=== PATIENT | female | born 1960 | race Caucasian/White ===

== ENCOUNTER → 2017-12-11 | Outpatient (CLI) | payer MEDICARE ==
[~2017-12-11] MED LIST: CLONIDINE0.1 PO; CYMBALTA30 MG PO; DYAZIDE 37.5-21 EACH; EFFEXOR 5050 MG/1 T1 PO; GLUCOTROL5 MG PO; LABETALOL HCL100 MG PO; LANTUS100 UNIT/M SUBQ; NEURONTIN 300300 M1 PO; NORCO 5-325 TA1 EACH PO; REQUIP 0.25 M0.25 MG PO; SYNTHROID150 MCG PO; TRAMADOL 50 MG50 MG PO; TYLENOL325 MG PO
--- NOTE | 2017-12-16 10:23 | PAINCON ---
[address] [address] PAIN MANAGEMENT CONSULTATION Name: ANNIA SPARKS Room: [facility].#: [id number] Admission: 12/11/17 Attend Phys: Iraj Dowd MD Discharge: Date of : 60 Report #: [id number] THIS REPORT FOR: //name// CC: Dr. Kavitha Barger DATE OF SERVICE: 12/11/2017 CHIEF COMPLAINT: "Pain in my neck, back, legs, which has gotten worse since September." FOLLOWUP HISTORY: The patient states that over the last 4 months, things have gotten worse. She has noted increased pain and discomfort with activities of daily living. States that she is retired because of disability. She does like to fish. She notes that she has restless legs and her legs are numb in the bottom. She has history of diabetes. States that her blood sugars are sometimes out of range. She has a history of smoking cigarettes for some time. She has been using hdnx-cqv-unxyrhu medications without long-term benefit. She describes her discomfort as continuous, constant, steady, shooting, burning, cramping and rates it as a 10/10. Pain is worse when she is walking. She is not sure of anything that makes it significantly better. She has some concerns that she may need to see her eye doctor because of some changes in her vision. States that she has some pain in her arms as a result of carpal tunnel syndrome. She has not had surgery for this. Notes some soreness in the back of her neck. She feels that this might be associated with some lesions/cysts that were removed from her neck in the past. Feels that there has been some slight source, may be some ulceration in her mouth. She does wear dentures. I am not sure whether or not the dentures are seated/fitting properly. ALLERGIES: LISINOPRIL. CURRENT MEDICATIONS: Levothyroxine 150 mcg, triamcinolone/hydrochlorothiazide 37.5/25 mg, losartan 100 mg, labetalol 100 mg 2 tablets daily, gabapentin 300 mg at bedtime, Tresiba -- Lantus insulin 100 units. PAST MEDICAL HISTORY: 1. Diabetes 15 years. 2. Hyperthyroid -- treated, now hypothyroid. 3. Stomach problems. 4. Emotional problems. PAST MEDICATIONS USED: Clonidine 0.1 mg b.i.d., duloxetine 30 mg, tramadol 50 mg 1 q.4-6 hours, Effexor, and glyburide 5 mg. PAST SURGICAL HISTORY: Hysterectomy, , fibroid tumors, [place] [address] PAIN MANAGEMENT CONSULTATION Name: BRIDGERANNIA K Room: [facility] Nisha#: [id number] Admission: 12/11/17 Attend Phys: Iraj Dowd MD Discharge: Date of : 60 Report #: [id number] the neck and appendectomy. ____ 2002, fibroid tumor removed in 2000, section was 1989, appendectomy was 2009, cyst removed from the neck 1997. SOCIAL HISTORY: The patient is disabled. States that she was disabled since 03/2017. 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 She is originally from [place], [place] States that she likes fishing daily. Has a 3-year-old grandson, who she would like to be more involved with. REVIEW OF SYSTEMS: Weight changes, fatigue, weakness, headaches, wears glasses, hearing loss/ringing in the ears, drainage, chronic sinus problems, mouth sores or sore glands in the neck, loss of appetite, bowel changes, nausea, vomiting, painful bowel movements, abdominal pain, rash and itching, varicose veins, frequent recurring headaches, lightheadedness, numbness and tingling sensation in the feet and hands, nervousness, depression, insomnia, slow to heal, easy bruising. LABORATORY DATA: The patient states that she had x-rays taken by her primary. There were no significant problems found. PAIN CLINIC ASSESSMENT: 1. The patient states that she is not being treated for rheumatoid arthritis or osteoarthritis. 2. Height 5 feet. Weight 164 pounds, BMI 32. 3. VITAL SIGNS: Blood pressure 163/99, heart rate 73, respiratory rate 16, room air saturation 98%. 4. Pain intensity 10/10. 5. Fall Risk: The patient states that she slipped and fell down [place] the [place] when she was going down. It felt like her knee caught. Fell a couple of days ago in the shower. States that she slipped on a slippery area in the tub. 6. ____ thinner. The patient is not on a blood thinning medication. 7. Hypertension. The patient is being treated for hypertension. 8. Opioid therapy. The patient is not on a regular opioid medication. 9. Risk assessment tool. 10. Functional assessment tool. The patient rates her pain impact score as a 61/70 indicating significant impact of her pain on activities of daily living. 11. Recreational drug use. The patient denies use of recreational drugs. 12. Tobacco: The patient states that she has smoked for 15 years, smokes one-half pack of cigarettes per day. Her work material which she brought to the pain clinic smells deeply of tobacco. 13. Alcohol: The patient admits to may be monthly use of alcohol, but no long-term use of alcoholic beverages. PHYSICAL EXAMINATION: GENERAL: The patient is a well-developed white female. Looks significantly [facility] [address] [place] [address] PAIN MANAGEMENT CONSULTATION Name: ANNIA SPARKS Efra Room: [facility]#: [id number] Admission: 12/11/17 Attend Phys: Iraj Dowd MD Discharge: Date of : 60 Report #: [id number] older than her stated age. Affect is appropriate. She is alert and oriented x 3. HEENT: Normocephalic. Skin shows significant signs of aging and that which is sometimes consistent with use of tobacco. Eyes, nonicteric. Hearing within normal limits. The patient has dentures. She removed her upper dentures stating that she sometimes has lesions up there. None are seen at this juncture. NECK: Without adenopathy. Good range of motion left and right lateral bending, lumbar extension and flexion without significant problems. No bruits. HEART: Regular rate. Normal S1, S2. LUNGS: Clear to auscultation, somewhat distant without rhonchi or rales. ABDOMEN: Nontender without adenopathy. MUSCULOSKELETAL: Without significant scoliosis, kyphosis or lordosis. Upper extremity muscle strength is judged to be 5/5 for the major muscle groups in the upper extremity with symmetry. Deep tendon reflexes are +2 for the biceps as well as +2 for the triceps and brachioradialis. Lower extremity, the patient has some tenderness to palpation midpoint in the lumbar area near the left posterior superior iliac spine area. Muscle strength in the lower extremities is judged to be 5/5 for the major muscle groups. Deep tendon reflexes are +2 at the knees, +2 at the ankles with brisk ankle reflexes. Raymundo's sign is negative. Anterolateral and posterior spring tests are negative. The patient complains of some numbness and tingling in the dorsal/bottom of her feet. Some muscle soreness in the anterior portion of her calf. IMPRESSION: 1. Musculoskeletal pain involving the upper extremities, lower extremities, no neurologic component noted. 2. Possible neurogenic pain secondary to her diabetes with involvement of her feet. 3. Restless leg syndrome. 4. History of depression. 5. Chronic pain. 6. Poor physical status. RECOMMENDATIONS: We discussed treatment options with the patient. At this juncture, it appears that she has global pain. Again, she has no discrete lumbar radicular pain or neurological dermatomal findings. I think at this juncture, she would be well served by increasing her physical conditioning. She should see the physical therapist and they could help her with appropriate exercises. We have given her Requip. Hopefully, this will be helpful in decreasing the amount of restless legs symptomatology. We would recommend that she increase her gabapentin to 300 mg t.i.d. She is on 100 at bedtime. She will increase to 300 t.i.d. as she is able to tolerate it. We discussed the need for the patient being mindful of her glucose. We explained the possible physiological complications of diabetes, which include eye, heart, renal, peripheral vascular causes. We also stressed cessation of tobacco use. [facility] [place] [address] [place] [address] PAIN MANAGEMENT CONSULTATION Name: ANNIA SPARKS Room: [facility]#: [id number] Admission: 12/11/17 Attend Phys: Iraj Dowd MD Discharge: Date of : 60 Report #: [id number] patient has been given a script for physical therapy. She was given a script for the Requip as well as a script for gabapentin. Hopefully, she continues to improve. At this juncture, there is no evidence for epidural steroid injections because the patient is not showing any signs of cervical or lumbar radiculopathy. We would like to thank you for letting us participate in her care. We hope she continues to improve. <ELECTRONICALLY SIGNED> By: Iraj Dowd MD 12/16/17 1023 [id number]. Andrae Dowd MD /nt
== END ==
LOC: M.PC 01:34
DX: M79.621 Pain in right upper arm (principal); M79.622 Pain in left upper arm; M79.661 Pain in right lower leg; M79.673 Pain in unspecified foot; G25.81 Restless legs syndrome; G89.29 Other chronic pain; F32.9 Major depressive disorder, single episode, unspecified

== ENCOUNTER → 2018-07-22 | Outpatient (CLI) | payer MEDICARE, MEDICAID | LOC: M.ULTRA 14:27 | DX: M79.89 Other specified soft tissue disorders (principal); R60.0 Localized edema; M79.662 Pain in left lower leg ==